=== PATIENT | male | born 1950 | race Hispanic/Latino ===

== ENCOUNTER 2018-06-09 09:17 | Observation (INO) | payer MEDICARE, SELFPAY ==
[2018-06-09 09:55] LABS: #Basophils 0.1 thou/uL (0.0-0.2); #Eosinphils 0.1 thou/uL (0.0-0.7); #Lymphocytes 1.3 thou/uL (1.20-3.40); #Monocytes 0.9 thou/uL (0.11-0.59); #Neutrophils 5.4 thou/uL (1.40-6.50); %Basophils 0.8 % (0.0-1.0); %Eosinophils 1.2 % (0.0-10.0); %Lymphocytes 17.2 % (21.0-51.0); %Monocytes 11.5 % (0.0-10.0); %Neutrophils 69.3 % (42.0-75.0); Hemoglobin 15.5 g/dL (14.0-18.0); Mean Corpuscular HGB CONC 34.6 g/dL (32.0-36.0); Mean Corpuscular Hemoglobin 30.6 pg (27.0-31.0); Mean Corpuscular Volume 88.5 fL (78.0-98.0); Mean Platelet Volume 7.8 fL (7.4-10.4); Platelet Count 239 thou/uL (130-400); RBC Distribution Width 12.1 % (11.5-14.5); Red Blood Cell (RBC) Count 5.07 mill/uL (4.70-6.10); White Blood Cell (WBC) Count 7.7 thou/uL (4.8-10.8)
[2018-06-09 10:37] LABS: ALT (SGPT) 17 U/L (8-55); AST (SGOT) 17 U/L (5-34); Albumin 4.4 g/dL (3.4-4.8); Alkaline Phosphatase 64 U/L (40-150); Anion Gap 13 mmol/L (10-20); BUN (Urea Nitrogen) 15 mg/dL (8.4-25.7); Bilirubin, Total 0.7 mg/dL (0.2-1.2); Calc. Creatinine Clearance 0 mL/min (70-130); Calcium 9.3 mg/dL (7.8-10.44); Carbon Dioxide 25 mmol/L (23-31); Chloride 104 mmol/L (98-107); Estimated GFR-MDRD 65; Glucose 131 mg/dL (80-115); Potassium 4.2 mmol/L (3.5-5.1); Protein, Total 7.4 g/dL (5.8-8.1); Sodium 138 mmol/L (136-145)
--- NOTE | 2018-06-09 11:04 | RAD ---
PORTABLE AP CHEST: Date: 06/09/18 HISTORY: Cough and chest pain. FINDINGS: Cardiac silhouette and pulmonary vasculature are within normal limits for the portable technique of t he study. There is accentuation of the bronchovascular markings due to shallow depth of inspiration. The lungs are otherwise clear. There has been no interval change compared to the prior exam. Vascular calcifications seen in the thoracic aorta. IMPRESSION: No acute cardiopulmonary process. POS: [facility]
[2018-06-09] MEDS ORDERED: Ondansetron PF 4 MG/2 ML Vial IVP PRN (11:06)
[2018-06-09] MEDS ORDERED: Nitroglycerin 0.4 MG TAB (25 Tab Bottle) SL PRN (11:06)
[2018-06-09] MEDS ORDERED: cloNIDine 0.1 MG TAB PO PRN (11:06)
[2018-06-09] MEDS ORDERED: Benzonatate 100 MG CAP PO PRN (11:06)
[2018-06-09] MEDS ORDERED: Calcium Carbonate 500 MG ChewTAB PO PRN (11:06)
[2018-06-09] MEDS ORDERED: hydrALAZINE 20 MG/ML VIAL SLOW IVP PRN (11:06)
[2018-06-09] MEDS ORDERED: Dextrose 50% Abboject 50 ML SYRINGE SLOW IVP PRN (11:06)
[2018-06-09] MEDS ORDERED: Dextrose 5% in Water 1,000 ML IV PRN (11:06)
[2018-06-09] MEDS ORDERED: Nitroglycerin 0.4 MG TAB (25 Tab Bottle) PO PRN (11:06)
[2018-06-09] MEDS ORDERED: HumaLOG 300 UNITS/3 ML VIAL SC PRN ×2 (11:06)
[2018-06-09 13:05] LABS: Troponin I Less than 0.010 ng/mL (< 0.028)
--- NOTE | 2018-06-09 14:59 | HP ---
PRIMARY CARE PHYSICIAN: Marco Burns MD PRIMARY CERTIFIED BREASTFEEDING EDUCATOR: Gino Whalen MD CHIEF COMPLAINT: Chest pain, cough, and fever. HISTORY OF PRESENT ILLNESS: Mr. Hinton is a pleasant 67-year-old male with history of atrial fibrillation on chronic anticoagulation as well as diabetes and hypertension, who presented to the emergency room with the above-mentioned complaint. History is mainly obtained by the patient himself and electronic medical records have been reviewed. Case has been discussed with admitting ER physician, Dr. Hoyt as well as with his primary buildings and grounds supervisor, Dr. Whalen. Mr. Hinton is a rather poor historian and most of history is obtained from his . She reports that he has been having chest pain for the last 3 days. It is intermittent, but it is constant and now it has worsened. It is localized in the substernal area and he describes it as a pressure sensation. It is worse with taking deep breaths in. He also has been having some fever since last night and has vomited once. He denies any shortness of breath, orthopnea, or PND. He has been having productive cough without any hemoptysis. Otherwise, denies any abdominal pain, dysuria, frequency, urgency, or diarrhea. He has no headache or muscle weakness. They report that he is compliant with his medications. He was seen by his buildings and grounds supervisor, Dr. Whalen, in the outpatient setting and has had some cardiac workup done, but they are not able to tell me exactly what. They feel that it was at least an echocardiogram and stress test 2 months ago, which was thought to be negative. In the emergency room, he was found to have right bundle-branch block on the EKG, which is not sure if it was new or old. His cardiac enzymes have been negative. Interesting fact is that he did test positive for influenza type B and has received Tamiflu. Because of his complaints of chest pain, he is now being admitted for further workup. I did discuss this briefly with his buildings and grounds supervisor, Dr. Whalen, who recommends admission and Cardiology consultation. PAST MEDICAL HISTORY: 1. Atrial fibrillation, on chronic anticoagulation. 2. Diabetes mellitus. 3. Hypertension. PAST SURGICAL HISTORY: 1. Left shoulder surgery. 2. Right knee surgery. PSYCHIATRIC HISTORY: None, reviewed with the patient. SOCIAL HISTORY: He is and lives with his . No history of drug, tobacco, or alcohol abuse. FAMILY HISTORY: They have multiple family members with diabetes, but no significant family history of premature coronary artery disease or stroke. MEDICATIONS: Include; 1. Enalapril 10 mg p.o. b.i.d. 2. Metformin 500 b.i.d. 3. Pravastatin 40 mg daily. 4. Xarelto 20 mg daily. The did report that he is on a medication to control his heart rate, but was not able to tell me the name of it. ALLERGIES: NO KNOWN MEDICATION ALLERGIES. REVIEW OF SYSTEMS: Twelve-point review of system is done, it is negative except for those mentioned in the history and physical. PHYSICAL EXAMINATION: VITAL SIGNS: Upon presentation, blood pressure 111/92, pulse of 107, respirations 18, saturating 97% on room air, and temperature 98. GENERAL: No acute distress. Awake, alert, and oriented x3. Lying comfortably in bed. HEENT: Mucous membrane is moist and pink. No oropharyngeal exudate or erythema. Head is normocephalic, atraumatic. Pupils are equal and reactive to light and accommodation. Extraocular movement intact. NECK: Supple without any lymphadenopathy, JVD, or bruit. CHEST: Clear to auscultation without any wheezing, rales, or rhonchi. He has irregularly irregular rhythm without any specific murmurs. His anterior chest wall is nontender to palpation. ABDOMEN: Soft, nontender, and nondistended. Positive bowel sounds. EXTREMITIES: Free of any cyanosis, clubbing, or edema. NEUROLOGICAL: Nonfocal. SKIN: Free of any rashes or bruises. Feels warm and dry to touch. PSYCHIATRIC: Normal affect. LABORATORY DATA: CBC is unremarkable. Serum chemistry unremarkable. Blood sugar 131. Lactic acid, normal. LFT normal. Troponin less than 0.010 x2. BNP normal. Lipid panel normal. IMAGING DATA: Chest x-ray by my review has no evidence to suggest pleural effusion, edema, or infiltrate. A 12-lead EKG, atrial fibrillation with RVR at 102 beats per minute. Incomplete right bundle-branch block without any acute ST or T-wave changes. IMPRESSION AND PLAN: 1. Influenza type B. The patient will be in droplet precaution and we will start him on Tamiflu. Gentle IV fluids will be provided as he does look somewhat dehydrated. 2. Chest pain, most likely this is due to excessive coughing and influenza B. His serial cardiac enzymes will be trended. In discussion with Dr. Whalen, he reported that he has had a cardiac PET scan and echocardiogram done as an outpatient. We will obtain a nuclear medicine stress test and consult Cardiology for further recommendations. Small dose of aspirin will be added to his Xarelto. 3. Chronic atrial fibrillation. His heart rate is under better control for now. I do not see any rate control medications on his profile. We will restart his Xarelto and enalapril for now. 4. Diabetes mellitus. We will start him on insulin sliding scale with frequent Accu-Cheks and hold metformin to avoid metabolic acidosis. 5. Dyslipidemia. Restart pravastatin. His lipid panel has been checked and is unremarkable and within normal limits. 6. Hypertension. Restart his home medication of enalapril and get the accurate list from his pharmacy. 7. Deep venous thrombosis and gastrointestinal prophylaxis. The patient is on Xarelto, which will be restarted and we will add Pepcid b.i.d. 8. Code status: Full code discussed with the patient and . DISPOSITION: Mr. Hinton is currently being admitted to the hospital with influenza as well as rule out ACS. Estimated length of stay at this time is less than 2 midnights. Cardiology recommendations will be followed. Job ID: [id number]
[2018-06-09 16:18] LABS: Troponin I Less than 0.010 ng/mL (< 0.028)
[2018-06-09] MEDS ORDERED: Rivaroxaban 10 MG TAB PO SCH (18:00)
[2018-06-09] MEDS ORDERED: Atorvastatin Calcium 10 MG TAB PO SCH (21:00)
[2018-06-09] MEDS ORDERED: Benzonatate 100 MG CAP ONE (21:30)
[2018-06-09] MEDS ORDERED: Acetaminophen 325 MG TAB ONE (22:58)
[2018-06-09] MEDS: Oseltamivir 75 MG CAP PO SCH (22:59)
[2018-06-09] MEDS: Acetaminophen 325 MG TAB PO PRN (22:59)
[2018-06-09 23:35] VITALS: BMI 26.9
[2018-06-09] MEDS: Diabetic Tussin 200 MG/10 ML UDCUP PO PRN (23:53)
[2018-06-10] MEDS: Acetaminophen 325 MG TAB PO PRN (04:42)
[2018-06-10] MEDS: Diabetic Tussin 200 MG/10 ML UDCUP PO PRN (04:42)
[2018-06-10 06:21] LABS: Anion Gap 12 mmol/L (10-20); BUN (Urea Nitrogen) 14 mg/dL (8.4-25.7); Calc. Creatinine Clearance 86 mL/min (70-130); Calcium 8.3 mg/dL (7.8-10.44); Carbon Dioxide 22 mmol/L (23-31); Chloride 105 mmol/L (98-107); Estimated GFR-MDRD 81; Glucose 138 mg/dL (80-115); Potassium 3.9 mmol/L (3.5-5.1); Sodium 135 mmol/L (136-145)
[2018-06-10] MEDS: Sodium Chloride 0.9% 1,000 ML IV SCH ×2 (07:49→09:58)
[2018-06-10] MEDS ORDERED: Prevnar 13-Val Conj/PF 0.5 ML SYRINGE IM ONE (09:00)
[2018-06-10] MEDS ORDERED: Aspirin 325 MG TAB PO SCH (09:00)
[2018-06-10] MEDS ORDERED: Rivaroxaban 10 MG TAB PO SCH (09:00)
[2018-06-10] MEDS: Oseltamivir 75 MG CAP PO SCH (11:55)
[2018-06-10 16:15] VITALS: BP 112/70; TEMP 99.7
--- NOTE | 2018-06-11 14:34 | DIS ---
DATE OF ADMISSION: 06/09/2018 DATE OF DISCHARGE: 06/10/2018 DISCHARGE DIAGNOSES: 1. Influenza B. 2. Chest pain. 3. Chronic atrial fibrillation. 4. Diabetes. 5. Dyslipidemia. 6. Hypertension. HISTORY OF PRESENT ILLNESS: The patient is a 67-year-old male with a history of some cardiac issues followed by Dr. Whalen. The patient presented to the Emergency Department on the day of admission complaining of chest pain, cough, and fever. The patient had a history of some fairly recent cardiac workup, although was little sketchy on the details. He had a workup in the Emergency Department that revealed negative troponins and a right bundle branch block of unknown duration. His flu screen was positive for influenza B. HOSPITAL COURSE: The patient was admitted and he was placed on observation status. He remained on telemetry and had serial cardiac isoenzymes, which remained negative. He was discussed with his primary ambulance attendant, Dr. Whalen, who reviewed his recent workup from a cardiac perspective, which was comfortably negative and the patient's symptoms essentially clarified to be more pain related to cough and deep breath and sounded very atypical from a cardiac perspective. The patient was felt to be stable for discharge from a cardiac standpoint. The patient had been started on Tamiflu. He was tolerating this well. His vital signs remained otherwise stable and he was felt to be appropriate for discharge for outpatient treatment of the influenza B. PHYSICAL EXAMINATION: VITAL SIGNS: On the day of discharge; temperature 99.7, pulse 99, respirations 21, O2 saturations 93% on room air, and BP 112/70. GENERAL: The patient is awake, alert, oriented, pleasant, and cooperative. HEART: Regular rate and rhythm without murmurs, gallops, or rubs. LUNGS: Clear to auscultation bilaterally. ABDOMEN: Soft and nontender. EXTREMITIES: Warm and dry. DISPOSITION: The patient is discharged to home. ACTIVITY: His activity is as tolerated. DIET: He will remain on a heart healthy diet. MEDICATIONS: Include; 1. Tamiflu 75 mg 1 p.o. b.i.d. 2. Metformin 500 mg b.i.d. 3. Metoprolol 25 mg daily. 4. Xarelto 20 mg daily. 5. Pravastatin 40 mg at bedtime. 6. Enalapril 10 mg b.i.d. FOLLOWUP: He is to follow up with Dr. Marco Burns on the next available appointments. He can return to the Emergency Department should he have any problems prior to that followup. Job ID: [id number]
--- NOTE | 2018-06-14 13:06 | EKG ---
Test Reason : Blood Pressure : / mmHG Vent. Rate : 102 BPM Atrial Rate : 089 BPM P-R Int : 000 ms QRS Dur : 122 ms QT Int : 302 ms P-R-T Axes : 000 -04 -11 degrees QTc Int : 393 ms Atrial fibrillation with rapid ventricular response Right bundle branch block Abnormal ECG Confirmed by KAY NESBITT ([id number]), copy editor JEREMY JAMES ([id number]) on 06/14/2018 1:06:14 PM Referred By: Confirmed By:KAY NESBITT
== END 2018-06-10 17:45 | disposition home or self-care (01) ==
LOC: ERS 09:17 → ERHOLD 11:35 → 2SW 23:40
PROVIDERS: ADMIT Internal Medicine; ATTEND Internal Medicine
DX: R07.9 Chest pain, unspecified (principal); J11.1 Influenza due to unidentified influenza virus with other respiratory manifestations; I48.2 Chronic atrial fibrillation; I10 Essential (primary) hypertension; E11.9 Type 2 diabetes mellitus without complications; I45.10 Unspecified right bundle-branch block; E78.5 Hyperlipidemia, unspecified; Z79.84 Long term (current) use of oral hypoglycemic drugs; Z79.01 Long term (current) use of anticoagulants; Z79.899 Other long term (current) drug therapy; Z98.890 Other specified postprocedural states
CPT/HCPCS: 71045; 80048; 80053; 80061; 82962 ×2; 83605; 83880; 84484 ×2; 85025; 87040; 87804 ×2; 93005; 97139; 99285; G0378 ×2; 36415; 36416